=== PATIENT | female | born 1975 | race Caucasian/White ===

== ENCOUNTER 2019-10-24 16:39 | Outpatient (CLI) | payer BC, SELFPAY ==
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
== END 2019-10-24 16:40 | disposition home or self-care (01) ==
LOC: RAD 16:42
PROVIDERS: Family Provider Family Medicine; PCP Family Medicine; Visit Provider Family Medicine
DX: M25.511 Pain in right shoulder (principal)
CPT/HCPCS: 73000; 73030

== ENCOUNTER → 2025-03-18 12:26 | Outpatient (BNVA) | payer OTHER, SELFPAY | PROVIDERS: Family Provider Family Medicine; PCP Family Medicine; Visit Provider Nurse Practitioner Family | DX: J02.9 Acute pharyngitis, unspecified (principal) | CPT/HCPCS: 87071; 87880 ==